=== PATIENT | female | born 1965 | race Caucasian/White ===

== ENCOUNTER → 2016-10-06 | Outpatient (CLI) | payer OTHER | LOC: BRMIMAGING 08:39 | PROVIDERS: ATTEND Family Medicine | DX: K59.00 Constipation, unspecified (principal) | CPT/HCPCS: 74000-PO ==

== ENCOUNTER 2017-07-03 20:15 | Emergency (ER) | payer OTHER ==
[2017-07-03] MEDS ORDERED: fentaNYL 100 MCG/2 ML INJ ONE (20:49)
[2017-07-03] MEDS ORDERED: fentaNYL 100 MCG/2 ML INJ IVP ONE (20:55)
[2017-07-03] MEDS ORDERED: KETAMINE 200 MG/20 ML VIAL ONE (21:00)
--- NOTE | 2017-07-03 21:10 | EDPHY ---
H & P Time Seen by Provider: 07/03/17 20:30 HPI/ROS: HPI Wrist fracture. 52-year-old female by private vehicle with her . This patient was playing with her dog in the backyard. She fell to the ground on an outstretched right hand. She presented to an urgent care with complaint of right wrist pain and deformity. She was sent here from urgent care for further evaluation and management. She is right-hand dominant. She denies any other injury or complaint. ROS: Constitutional: No fever, no chills. No weakness. Musculoskeletal: No back pain. No neck pain. As above. Skin: No rashes. No lacerations or abrasions. Neurological: No headache. No focal weakness or altered sensation. Past medical history: Migraine headaches. Social history: Nonsmoker. No alcohol here with her . 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 Physical Exam: General Appearance: Alert, uncomfortable but not in distress. This patient is responding to questions appropriately and in full sentences. This patient appears well-hydrated and well-nourished. Eyes: Pupils equal and round no pallor or injection. No lid edema, erythema or injection. Right upper extremity exam: Colles fracture/dinner fork deformity. Skin is intact. Hand and right upper extremity are neurovascularly intact. Neurological: Motor sensory function is grossly intact. Cranial nerves are normal. Gait is normal. Skin: Warm and dry, no rashes. Musculoskeletal: Neck is supple and nontender. Extremities are symmetrical. All joints range without pain or impingement. Psychiatric: No agitation. No depression. Database: EKG: Imaging: Right wrist x-ray series: Significant for a distal radius fracture with associated ulnar styloid fracture there is dorsal angulation of about 30 degrees. Interpreted by me. Post reduction right wrist x-ray series: Shows good anatomic alignment post reduction. Interpreted by me. Procedures: Procedure: Dislocation reduction. The right wrist Colles fracture was reduced in the usual fashion without complications. Post reduction the patient's neurovascular exam is normal. Post reduction x-ray demonstrates reduction of the joint to the anatomic position. The procedure was performed by myself. Procedure: Procedural sedation. Indication: Reduction of right wrist Colles fracture. A pre-sedation evaluation was completed on the patient just prior to the procedure. Patient is an appropriate candidate for procedural sedation with ASA class 1E. Mallampati class I. Patient assessed as 332. The risks of the sedation were discussed including but not limited to dysrhythmia, need for airway intervention or general anesthesia, disability, ; and verbal consent obtained. A timeout was observed and patient's identity confirmed. The patient was sedated with 30 mg of slow IV push ketamine. The patient was monitored with continuous pulse oximetry, capnography, and pulp cooker. There were no complications and no significant hypoxemia. I remained at the bedside for the sedation. The total time I spent in the procedural sedation was 20 min. Emergency department course: Vital signs reviewed. I discussed hematoma block with the patient. She does not want to have the injections. She would like procedural sedation. She will be given low-dose ketamine prior to manipulation and reduction. 10:15 p.m., patient re-evaluated, she is resting comfortably at this time. She is responding to questions appropriately. I feel she is safe for discharge. I discussed the results of her post reduction x-rays with her and her . I discussed follow-up with Orthopedics as well as pain medication administration. She feels comfortable going home with her at this time. She understands for follow-up. Return to emergency department precautions were reviewed with them. All their questions were answered. She was discharged in good condition. Differential Diagnosis: The differential diagnosis on this patient includes but is not limited to close right wrist Colles fracture. Open fracture, significant neurovascular injury, head injury, unlikely. This represents a partial list of diagnoses considered. These considerations are based on history, physical exam, past history, reassessment and diagnostic testing. Smoking Status: Never smoked Constitutional: Initial Vital Signs Temperature (C) 36.6 C 07/03/17 20:19 Heart Rate 77 07/03/17 20:19 Respiratory Rate 18 07/03/17 20:19 Blood Pressure 133/78 H 07/03/17 20:19 O2 Sat (%) 100 07/03/17 20:19 O2 Delivery Mode [Post Oxymask Procedure 1st] O2 Delivery Mode [Procedural Oxymask 2nd] O2 Delivery Mode [Procedural Oxymask 1st] O2 Delivery Mode [.Immediate Oxymask Pre-Procedure] O2 Delivery Mode Room Air O2 (L/minute) [Post Procedure 10 1st] O2 (L/minute) [Procedural 2nd] 10 O2 (L/minute) [Procedural 1st] 10 O2 (L/minute) [.Immediate Pre- 10 Procedure] Allergies/Adverse Reactions: No Known Allergies Allergy (Unverified 07/03/17 20:22) Home Medications: Medication Instructions Recorded Hydrocodone/APAP 5/325 [[place] 1 - 2 tab PO Q4-6PRN PRN #10 tab 07/03/17 5/325 (*)] Rizatriptan Benzoate [Maxalt] 10 mg PO 07/03/17 Medical Decision Making - Diagnostics Imaging Results: Imaging Impressions Wrist X-Ray 07/03/17 20:25 Impression: 1. Acute angulated and impacted distal radius fracture. 2. Acute minimally displaced ulnar styloid fracture. Wrist X-Ray 07/03/17 21:48 Impression: Near-anatomic reduction of distal radius fracture now in casting material. - Data Points Medications Given: Discontinued Medications Fentanyl (Sublimaze) 50 mcg IVP EDNOW ONE Stop: 07/03/17 20:56 Last Admin: 07/03/17 20:56 Dose: 50 mcg Ketamine HCl (Ketamine) 30 mg IVP EDNOW ONE Stop: 07/03/17 21:27 Last Admin: 07/03/17 21:29 Dose: 30 mg Departure - Departure Disposition: Home, Routine, Self-Care Clinical Impression: Right wrist fracture Condition: Good Instructions: Wrist Fracture in Adults (ED) Additional Instructions: Read and follow provided instructions. Follow-up with Orthopedics, Dr. Tracy or 1 of his partners early next week for re-evaluation and further management. Call his office Tuesday for appointment time. They will have access to your x-rays that we did tonight. Take medication as prescribed. Ibuprofen dosin mg every 6 hours with meals for the next 3 days only. Take only as needed for pain. [place] dosin-2 every 4-6 hours as needed for pain. Do not drive while taking this medication. Return to the emergency department for worsening pain, loss of sensation or numbness in your hand, swelling or discoloration of your hand, or other serious concerns. Referrals: Vinny Tracy MD [Medical Doctor] - As per Instructions Prescriptions: Hydrocodone/APAP 5/325 [[place] 5/325 (*)] 1 - 2 tab PO Q4-6PRN PRN #10 tab PRN Reason: Pain, Moderate
[2017-07-03] MEDS ORDERED: KETAMINE 200 MG/20 ML VIAL IVP ONE (21:26)
[2017-07-03 22:29] VITALS: BP 122/74
[2017-07-03] MEDS ORDERED: HYDROCOD/APAP 5/325 PREPACK#6 BTL TAKEHOME ONE (22:30)
== END 2017-07-03 22:40 | disposition home or self-care (01) ==
PROC: 0PSHXZZ Reposition Right Radius, External Approach (ICD-10-PCS; principal; 2017-07-03)
DX: S52.501A Unspecified fracture of the lower end of right radius, initial encounter for closed fracture (principal); S52.611A Displaced fracture of right ulna styloid process, initial encounter for closed fracture; W18.39XA Other fall on same level, initial encounter; Y92.89 Other specified places as the place of occurrence of the external cause; Y99.8 Other external cause status; Y93.89 Activity, other specified
CPT/HCPCS: 96374; J3010; L3980

== ENCOUNTER → 2017-08-19 | Outpatient (CLI) | payer OTHER | LOC: FIMAGING 10:12 | PROVIDERS: ATTEND Family Medicine | DX: Z12.31 Encounter for screening mammogram for malignant neoplasm of breast (principal) ==

== ENCOUNTER → 2018-03-27 | Outpatient (CLI) | payer OTHER | LOC: FIMAGING 14:45 | PROVIDERS: ATTEND Physician Assistant Surgical | DX: N60.01 Solitary cyst of right breast (principal) ==

== ENCOUNTER 2018-06-27 02:54 | Emergency (ER) | payer OTHER ==
[2018-06-27] MEDS ORDERED: NS 1,000 ML IV ONE (03:27)
[2018-06-27] MEDS ORDERED: KETOROLAC 15 MG/1 ML SDV IVP ONE (03:31)
[2018-06-27] MEDS ORDERED: PROMETHAZINE HCL 25 MG/ML INJ IVP ONE (03:31)
[2018-06-27] MEDS ORDERED: NS 50 ML BAG IV ONE (03:35)
--- NOTE | 2018-06-27 03:57 | EDPHY ---
H & P Stated Complaint: recently had a new injection for migraines Time Seen by Provider: 06/27/18 02:59 HPI/ROS: CC: Migraine HPI: This 53 y/o female with past medical history of migraine headaches since she was a child presents to the Emergency Department with her complaining of a headache that started gradually at 9pm last evening. It was about a 3/10 at the onset but then woke her up at 11pm at 10/10. The discomfort is left sided like a band around her head then radiates over the top of her head to the back of her neck. She has sensitivity to light and mild nausea without vomiting. She denies stiff neck, changes in her vision, numbness , tingling, weakness, or difficulty speaking. She has tried the naratriptan prescribed by her neurologist as well as Maxalt prescribed by her primary care provider with little relief. She also had her second monthly shot of Aimovig four days ago. She feels the recent snow/rain triggered this migraine. She also states she had a CT scan about 9 months ago and it was normal and a physical exam recently with normal labs. However, they did find cysts on her thyroid and is scheduled for a needle aspiration in a couple of days. She denies recent illness. REVIEW OF SYSTEMS: Constitutional: No fever, no chills. Eyes: No discharge. ENT: No sore throat. Respiratory: No cough, no shortness of breath. Cardiac: No chest pain, no palpitations. Gastrointestinal: No abdominal pain, no vomiting. Genitourinary: No dysuria. Musculoskeletal: No back pain. Skin: No rashes. Neurological: See HPI. Source: Patient, Family () Exam Limitations: No limitations - Personal History Current Tetanus Diphtheria and Acellular Pertussis (TDAP): Yes - Medical/Surgical History PMH: PMH: Migraine headaches, mild TBI PSH: Wrist sx; hysterectomy FH: Mother - VT; Father - Alzheimer's disease. "Both had headaches." NKDA Meds: Naratriptan, Maxalt, Aimovig, Prozac PCP: Dr. Stephie Little [place]; Neurologist: Dr. 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 - Physical Exam Exam: General Appearance: Alert, moderate distress. Eyes: Pupils equal and round no pallor or injection. Fundi benign. ENT, Mouth: Mucous membranes are moist. Oropharynx clear without erythema. Respiratory: There are no retractions, lungs are clear to auscultation. Cardiovascular: Regular rate and rhythm. No murmurs, gallops, or rubs. Gastrointestinal: Abdomen is soft and nontender, no masses, bowel sounds normal. Neurological: Awake and alert, sensory and motor exams normal. CN II-XII intact. No pronator drift. Normal alternating movement. Skin: Warm and dry, no rashes. Musculoskeletal: Neck is supple, nontender. No meningeal signs. Extremities without edema. Psychiatric: Patient is oriented X 3, there is no agitation. DIFFERENTIAL DIAGNOSIS: After history and physical exam differential diagnosis was considered for but not limited to: migraine headache, tension headache, subarachnoid hemorrhage, intracranial hemorrhage, intracranial mass Constitutional: Initial Vital Signs Temperature (C) 98 F 06/27/18 03:01 Heart Rate 63 06/27/18 03:01 Respiratory Rate 18 06/27/18 03:01 Blood Pressure 133/80 H 06/27/18 03:01 O2 Sat (%) 100 06/27/18 03:01 O2 Delivery Mode Room Air Allergies/Adverse Reactions: No Known Allergies Allergy (Unverified 07/03/17 20:22) Home Medications: Medication Instructions Recorded Hydrocodone/APAP 5/325 [[place] 1 - 2 tab PO Q4-6PRN PRN #10 tab 07/03/17 5/325 (*)] Rizatriptan Benzoate [Maxalt] 10 mg PO 07/03/17 Aimovig Autoinjector 06/27/18 Prozac 10 MG (*) 06/27/18 Ultram 06/27/18 Medical Decision Making ED Course/Re-evaluation: The patient was seen and examined. Vital signs reviewed. Prior records reviewed including those available in [facility] and the [place] prescription monitoring program. There were no concerning findings related to migraine headaches or narcotic use. The patient was given a L of IV fluids and high- flow oxygen as well as Toradol 15 mg IV push, Phenergan 6.25 mg IV push, and Benadryl 25 mg IV push. Her headache came down to a 5/10. She was offered more IV fluids or more pain medications and she declined. She declined a head CT. She declined lab work. She is feeling better and requesting to go home. She will follow up with her primary care provider or neurologist or return to the emergency room sooner if symptoms change or worsen as discussed. - Data Points Laboratory Results: 06/27/18 03:23 POC Sodium 141 mEq/L mEq/L (135-145) POC Potassium 4.0 mEq/L mEq/L (3.3-5.0) POC Chloride 109.0 mEq/L mEq/L (97-110) POC Total CO2 26 mEq/L mEq/L (22-31) POC BUN 27 mg/dL H mg/dL (7-23) POC Creatinine 1.0 mg/dL mg/dL (0.6-1.0) POC Glucose 103 mg/dL H mg/dL (70-100) POC Calcium 10.3 mg/dL mg/dL (8.5-10.4) POC Total Bilirubin 0.9 mg/dL mg/dL (0.1-1.4) POC AST 35 IU/L IU/L (14-46) POC ALT 29 IU/L IU/L (9-52) POC Alk Phosphatase 54 IU/L IU/L (38-126) POC Total Protein 7.3 g/dL g/dL (6.3-8.2) POC Albumin 3.8 g/dL g/dL (3.5-5.0) Medications Given: Discontinued Medications Diphenhydramine HCl (Benadryl Injection) 25 mg IVP EDNOW ONE Stop: 06/27/18 03:32 Last Admin: 06/27/18 03:42 Dose: 25 mg Sodium Chloride (Ns) 1,000 mls @ 0 mls/hr IV ONCE ONE; Wide Open PRN Reason: Protocol Stop: 06/27/18 03:28 Last Admin: 06/27/18 03:41 Dose: 1,000 mls Ketorolac Tromethamine (Toradol) 15 mg IVP EDNOW ONE Stop: 06/27/18 03:32 Last Admin: 06/27/18 03:42 Dose: 15 mg Promethazine HCl (Phenergan) 6.25 mg IVP ONCE ONE Stop: 06/27/18 03:32 Last Admin: 06/27/18 03:43 Dose: 6.25 mg Point of Care Test Results: Chemistry 06/27/18 03:23 POC Sodium 141 mEq/L mEq/L (135-145) POC Potassium 4.0 mEq/L mEq/L (3.3-5.0) POC Chloride 109.0 mEq/L mEq/L (97-110) POC Total CO2 26 mEq/L mEq/L (22-31) POC BUN 27 mg/dL H mg/dL (7-23) POC Creatinine 1.0 mg/dL mg/dL (0.6-1.0) POC Glucose 103 mg/dL H mg/dL (70-100) POC Calcium 10.3 mg/dL mg/dL (8.5-10.4) POC Total Bilirubin 0.9 mg/dL mg/dL (0.1-1.4) POC AST 35 IU/L IU/L (14-46) POC ALT 29 IU/L IU/L (9-52) POC Alk Phosphatase 54 IU/L IU/L (38-126) POC Total Protein 7.3 g/dL g/dL (6.3-8.2) POC Albumin 3.8 g/dL g/dL (3.5-5.0) Departure - Departure Disposition: Home, Routine, Self-Care Clinical Impression: Migraine headache Qualifiers: Migraine type: chronic without aura Status migrainosus presence: without status migrainosus Intractability: not intractable Qualified Code(s): G43.709 - Chronic migraine without aura, not intractable, without status migrainosus Condition: Good Instructions: Migraine Headache (ED) Additional Instructions: Rest. Drink plenty of fluids. Follow up with your neurologist if symptoms return. Return to the ER if symptoms change or worsen. Referrals: Justyn Hastings [Non Staff Provider (MD)] - As per Instructions Stephie Little MD [Non Staff Provider ()] - As per Instructions
[2018-06-27 04:24] VITALS: BP 123/62
== END 2018-06-27 04:24 | disposition home or self-care (01) ==
LOC: CED 02:54
DX: G43.709 Chronic migraine without aura, not intractable, without status migrainosus (principal); E86.9 Volume depletion, unspecified
CPT/HCPCS: 80053-ER; 96374-ER; 96375-ER; 99284-ER; J1200; J1885; J2550

== ENCOUNTER → 2018-06-28 | Outpatient (CLI) | payer OTHER | LOC: FIMAGING 11:15 | PROVIDERS: ATTEND Internal Medicine Endocrinology, Diabetes & Metabolism | DX: C73 Malignant neoplasm of thyroid gland (principal) ==

== ENCOUNTER → 2018-07-07 | Outpatient (CLI) | payer OTHER | LOC: FIMAGING 15:05 ==

== ENCOUNTER → 2018-08-02 | Outpatient (CLI) | payer OTHER | LOC: FIMAGING 12:27 ==